=== PATIENT | female | born 1950 | race Caucasian/White ===

== ENCOUNTER 2017-11-08 09:57 | Emergency (ER) | payer OTHER ==
[~2017-11-08] VITALS: Ht 157.5 cm; Wt 44.9 kg
[~2017-11-08 09:57] MED LIST: HYDRCRY2; PRO20T
[2017-11-08 10:04] VITALS: BP 157/91
[2017-11-08] MEDS ORDERED: PANTOPRAZOLE 40 MG/10 ML VIAL IV ONE ×2 (10:15→12:00)
[2017-11-08 10:39] LABS: Basophils # (auto) 0.1 uL; Basophils % (auto) 1.4 % (0.0-2.0); Eosinophils # (auto) 0.3 uL; Eosinophils % (auto) 3.7 % (0.0-7.0); Hematocrit 42.1 % (36.0-46.0); Hemoglobin 13.5 g/dL (12.2-16.2); Lymphocytes # (auto) 2.8 uL; Lymphocytes % (auto) 33.4 % (10.0-50.0); Mean Corpuscular Hemoglobin 28.2 pg (28.0-32.0); Monocytes # (auto) 0.6 uL; Monocytes % (auto) 7.1 % (0.0-12.0); Neutrophils # (auto) 4.6 uL; Neutrophils % (auto) 54.4 % (37.0-80.0); Nucleated Red Blood Cells % 0.1 %; Platelet Count (auto) 263 10^3/uL (140-450); Red Blood Cells 4.78 10^6/uL (4.0-5.20); White Blood Cell 8.4 10^3/uL (4.4-10.8)
[2017-11-08 10:41] LABS: Urine Bacteria FEW /hpf (None Seen); Urine Blood Negative /uL (Negative); Urine Hyaline Cast FEW /lpf (0 - 2); Urine Mucus FEW (None Seen); Urine WBC 2 /hpf (0 - 5)
[2017-11-08 11:10] LABS: Albumin 3.6 g/dL (3.4-5.0); BUN/Creatinine Ratio 14.7; Bilirubin, Total 0.7 mg/dL (0.2-1.0); Potassium 3.5 mmol/L (3.5-5.1); Total Protein 7.9 g/dL (6.4-8.2)
[2017-11-08] MEDS ORDERED: SODIUM CHLORIDE 0.9% 1,000 ML IV SCH (11:51)
[2017-11-08] MEDS ORDERED: NITROGLYCERIN 0.4 MG SL TAB SL PRN (12:00)
[2017-11-08] MEDS ORDERED: LORazepam 0.5 MG TAB PO PRN (12:00)
[2017-11-08] MEDS ORDERED: ACETAMINOPHEN 500 MG TAB PO PRN (12:00)
[2017-11-08] MEDS ORDERED: PROMETHAZINE HCL 25 MG/ML 1ML IV PRN (12:00)
[2017-11-08] MEDS ORDERED: traMADol HCL 50 MG TAB PO PRN (12:00)
[2017-11-08] MEDS ORDERED: MORPHINE SULF INJ 2 MG/ML SYRINGE 1ML IV PRN (12:00)
[2017-11-08 12:24] LABS: Amylase 90 U/L (25-115); Lipase 137 U/L (73-393)
[2017-11-09] MEDS ORDERED: PANTOPRAZOLE 40 MG/10 ML VIAL IV SCH (10:00)
== END 2017-11-08 12:53 | disposition left against medical advice (07) ==
LOC: ER 09:57
DX: N20.0 Calculus of kidney (principal); K25.9 Gastric ulcer, unspecified as acute or chronic, without hemorrhage or perforation; J44.9 Chronic obstructive pulmonary disease, unspecified; I10 Essential (primary) hypertension; Z90.49 Acquired absence of other specified parts of digestive tract
CPT/HCPCS: 36415; 71046; 74176; 80053; 81001; 82150; 83690; 85025; 85045; 85652; 86677; 93005

== ENCOUNTER → 2017-12-11 | Outpatient (CLI) | payer OTHER ==
[2017-12-11 08:11] LABS: Basophils # (auto) 0.1 uL; Basophils % (auto) 1.5 % (0.0-2.0); Eosinophils # (auto) 0.3 uL; Hematocrit 39.7 % (36.0-46.0); Lymphocytes # (auto) 2.3 uL; Lymphocytes % (auto) 40.1 % (10.0-50.0); Mean Corpuscular Hemoglobin 28.4 pg (28.0-32.0); Mean Corpuscular Hgb Conc. 32.7 g/dL (32.0-36.0); Mean Corpuscular Volume 86.9 fL (80.0-100.0); Monocytes # (auto) 0.4 uL; Monocytes % (auto) 7.3 % (0.0-12.0); Neutrophils # (auto) 2.6 uL; Neutrophils % (auto) 45.1 % (37.0-80.0); Nucleated Red Blood Cells % 0.1 %; Platelet Count (auto) 232 10^3/uL (140-450); Red Blood Cells 4.57 10^6/uL (4.0-5.20); Red Cell Distribution Width 14.6 % (11.8-14.3); White Blood Cell 5.8 10^3/uL (4.4-10.8)
[2017-12-11 08:17] LABS: Urine Bacteria NONE SEEN /hpf (None Seen); Urine Blood Negative /uL (Negative); Urine Specific Gravity 1.015 (1.001-1.035); Urine WBC 1 /hpf (0 - 5)
[2017-12-11 09:05] LABS: Albumin 3.6 g/dL (3.4-5.0); BUN/Creatinine Ratio 20.6; Bilirubin, Total 0.5 mg/dL (0.2-1.0); Calcium 9.2 mg/dL (8.5-10.1); Potassium 3.7 mmol/L (3.5-5.1); Total Protein 7.6 g/dL (6.4-8.2)
[2017-12-11 10:34] LABS: Folate (Folic Acid) 15.76 ng/mL (5.38-24)
[2017-12-13 09:19] LABS: Hepatitis B Surface Antibody Negative
[2017-12-13 09:57] LABS: Hepatitis A Total Antibody Negative
[2017-12-13 10:42] LABS: Hepatitis B Core Total AB Positive; Hepatitis B Surface Antigen Negative (Negative); Hepatitis C Antibody Negative (Negative)
== END | disposition home or self-care (01) ==
LOC: LAB 07:23
PROVIDERS: ATTEND Nurse Practitioner
DX: E78.5 Hyperlipidemia, unspecified (principal); J44.9 Chronic obstructive pulmonary disease, unspecified; I10 Essential (primary) hypertension
CPT/HCPCS: 36415; 80053; 80061; 81001; 82306; 82607; 82746; 84443; 85025; 86704; 86706; 86708; 86803; 87340

== ENCOUNTER 2018-06-24 17:37 | Emergency (ER) | payer OTHER | END 2018-06-24 18:44 | disposition left against medical advice (07) | LOC: ER 17:37 | DX: R07.9 Chest pain, unspecified (principal); Z53.21 Procedure and treatment not carried out due to patient leaving prior to being seen by health care provider | CPT/HCPCS: 82962; 93005 ==

== ENCOUNTER 2018-09-27 16:29 | Emergency (ER) | payer BC, OTHER ==
[~2018-09-27] VITALS: Ht 165.1 cm; Wt 54.4 kg
[2018-09-27 18:01] LABS: Basophils # (auto) 0.2 uL; Eosinophils # (auto) 0.3 uL; Eosinophils % (auto) 5.7 % (0.0-7.0); Hematocrit 39.2 % (36.0-46.0); Hemoglobin 13.1 g/dL (12.2-16.2); Lymphocytes # (auto) 2.3 uL; Lymphocytes % (auto) 46.2 % (10.0-50.0); Mean Corpuscular Hemoglobin 30.5 pg (28.0-32.0); Mean Corpuscular Hgb Conc. 33.5 g/dL (32.0-36.0); Mean Corpuscular Volume 91.2 fL (80.0-100.0); Monocytes # (auto) 0.3 uL; Neutrophils # (auto) 1.8 uL; Neutrophils % (auto) 37.1 % (37.0-80.0); Nucleated Red Blood Cells % 0.1 %; Platelet Count (auto) 304 10^3/uL (140-450); Red Cell Distribution Width 18.6 % (11.8-14.3); White Blood Cell 4.9 10^3/uL (4.4-10.8)
[2018-09-27 18:13] LABS: Alanine Aminotransferase 32 U/L (13-56); Albumin 3.5 g/dL (3.4-5.0); Anion Gap 11 (5-15); Blood Urea Nitrogen 4 mg/dL (7-18); Calcium 8.4 mg/dL (8.5-10.1); Carbon Dioxide 24 mmol/L (21-32); Chloride 99 mmol/L (98-107); Glucose 116 mg/dL (74-106); Magnesium 2.2 mg/dL (1.6-2.6); Potassium 3.3 mmol/L (3.5-5.1); Sodium 134 mmol/L (136-145)
[2018-09-27 18:15] LABS: Urine Bacteria FEW /hpf (None Seen); Urine Blood Negative /uL (Negative); Urine Specific Gravity 1.003 (1.001-1.035); Urine WBC 112 /hpf (0 - 5)
[2018-09-27 18:19] LABS: Alkaline Phosphatase 120 U/L (45-117); Aspartate Aminotransferase 53 U/L (15-37); BUN/Creatinine Ratio 6.2; Bilirubin, Total 0.3 mg/dL (0.2-1.0); GFR African American 116 mL/min; GFR Non-African American 96 mL/min; Total Protein 7.6 g/dL (6.4-8.2)
[2018-09-27 19:10] VITALS: BP 139/67
[2018-09-27] MEDS ORDERED: SODIUM CHLORIDE 0.9% 1,000 ML IV ONE (19:28)
[2018-09-27] MEDS ORDERED: cefTRIAXone 1GM/50ML D5W 50 ML IV ONE (19:45)
== END 2018-09-27 20:41 | disposition home or self-care (01) ==
LOC: EDBD 16:29 → ER 16:29
DX: N39.0 Urinary tract infection, site not specified (principal); F10.920 Alcohol use, unspecified with intoxication, uncomplicated; J44.9 Chronic obstructive pulmonary disease, unspecified; I10 Essential (primary) hypertension; F17.210 Nicotine dependence, cigarettes, uncomplicated; Z90.49 Acquired absence of other specified parts of digestive tract; Y90.0 Blood alcohol level of less than 20 mg/100 ml; Z90.89 Acquired absence of other organs
CPT/HCPCS: 36415; 71045; 80053; 80320; 81001; 82962; 83735; 84484; 85025; 93005; 94761; 96365; 99284; J0696; J7030

== ENCOUNTER 2018-10-07 16:03 | Inpatient (IN) | payer BC ==
[~2018-10-07] VITALS: Ht 160 cm; Wt 57.0 kg
[~2018-10-07 16:03] MED LIST changes: -HYDRCRY2; +HYDRCRY2 PO
[2018-10-07] MEDS ORDERED: SODIUM CHLORIDE 0.9% 1,000 ML IV ONE ×2 (16:18)
[2018-10-07] MEDS ORDERED: THIAMINE 100mg/ml INJ (200mg/2ml VIAL) IV ONE (16:30)
[2018-10-07] MEDS ORDERED: ASPirin 81 mg TAB PO ONE (16:30)
[2018-10-07 16:44] LABS: Basophils # (auto) 0.1 uL; Basophils % (auto) 2.3 % (0.0-2.0); Eosinophils # (auto) 0.2 uL; Eosinophils % (auto) 4.9 % (0.0-7.0); Hematocrit 35.7 % (36.0-46.0); Hemoglobin 11.9 g/dL (12.2-16.2); Lymphocytes # (auto) 2.2 uL; Lymphocytes % (auto) 48.3 % (10.0-50.0); Mean Corpuscular Hemoglobin 31.1 pg (28.0-32.0); Mean Corpuscular Hgb Conc. 33.4 g/dL (32.0-36.0); Monocytes # (auto) 0.2 uL; Monocytes % (auto) 5.4 % (0.0-12.0); Neutrophils # (auto) 1.8 uL; Neutrophils % (auto) 39.1 % (37.0-80.0); Nucleated Red Blood Cells % 0.2 %; Platelet Count (auto) 205 10^3/uL (140-450); Red Blood Cells 3.84 10^6/uL (4.0-5.20); Red Cell Distribution Width 18.3 % (11.8-14.3); White Blood Cell 4.5 10^3/uL (4.4-10.8)
[2018-10-07 17:06] LABS: Albumin 3.2 g/dL (3.4-5.0); Anion Gap 12 (5-15); Blood Urea Nitrogen 4 mg/dL (7-18); Calcium 7.8 mg/dL (8.5-10.1); Carbon Dioxide 22 mmol/L (21-32); Chloride 96 mmol/L (98-107); Glucose 224 mg/dL (74-106); Sodium 130 mmol/L (136-145)
[2018-10-07 17:08] LABS: Alanine Aminotransferase 37 U/L (13-56); Alkaline Phosphatase 97 U/L (45-117); Aspartate Aminotransferase 66 U/L (15-37); Bilirubin, Total 0.3 mg/dL (0.2-1.0); GFR African American 135 mL/min; GFR Non-African American 112 mL/min; Total Protein 6.9 g/dL (6.4-8.2)
[2018-10-07 17:14] LABS: Potassium 2.7 mmol/L (3.5-5.1)
[2018-10-07] MEDS: POTASSIUM CHL 20MEQ/100ML 100 ML IV SCH ×2 (21:00→22:53)
[2018-10-07] MEDS ORDERED: HYDROcodone-ACET 5/325MG TAB PO PRN (21:15)
[2018-10-07] MEDS ORDERED: FOLIC ACID 1 MG TAB PO ONE (21:15)
[2018-10-07] MEDS ORDERED: ONDANSETRON HCL 4 MG/2 ML VIAL IV PRN (21:15)
[2018-10-07] MEDS ORDERED: chlordiazePOXIDE HCL 25 MG CAP PO PRN (21:15)
[2018-10-07] MEDS ORDERED: LORazepam 0.5 MG TAB PO PRN (21:15)
[2018-10-07] MEDS ORDERED: ACETAMINOPHEN 500 MG TAB PO PRN (21:15)
[2018-10-07] MEDS ORDERED: MULTIPLE VITAMIN TAB PO ONE (21:15)
[2018-10-07] MEDS: traZODone HCL 50 MG TAB PO SCH (21:41)
[2018-10-07] MEDS ORDERED: FAMOTIDINE (10MG/ML) 2ML VL IV ONE (21:45)
[2018-10-07] MEDS ORDERED: FAMOTIDINE (10MG/ML) 2ML VL IV SCH (22:00)
[2018-10-07 22:49] LABS: Urine Bacteria FEW /hpf (None Seen); Urine Blood Negative /uL (Negative); Urine Specific Gravity 1.002 (1.001-1.035); Urine WBC <1 /hpf (0 - 5)
[2018-10-07] MEDS: SODIUM CHLORIDE 0.9% 1,000 ML IV SCH (23:39)
[2018-10-08] VITALS (7 sets, daily range): BP systolic 105–159; BP diastolic 54–82
--- NOTE | 2018-10-08 00:45 | NUR ---
Telemetry admit from ER KEN MORAN admitted to Telemetry unit after SBAR received. Patient oriented to primary RN, unit, room, bed, and unit policies regarding patient care and visiting hours. Patient now on continuous telemetry monitoring, tele box # 14 and telemetry reading on arrival to unit is Sinus Rhythm with BBB. Patient placed on bedside oxygen, weighed by bedscale and encouraged to call if they need something. All questions and concerns addressed, patient verbalized understanding.
[2018-10-08] MEDS ORDERED: ALBUTEROL SULF 2.5 MG/0.5ML(0.5%) NEB SOLN NEB PRN (01:15)
[2018-10-08] MEDS ORDERED: IPRATROPIUM BROM 0.5 MG/2.5ML INH SOL NEB PRN (01:15)
[2018-10-08 06:53] LABS: BUN/Creatinine Ratio 8.9; Potassium 4.2 mmol/L (3.5-5.1)
[2018-10-08 07:21] LABS: Basophils # (auto) 0.2 uL; Basophils % (auto) 4.1 % (0.0-2.0); Eosinophils # (auto) 0.3 uL; Eosinophils % (auto) 6.5 % (0.0-7.0); Hematocrit 37.2 % (36.0-46.0); Hemoglobin 12.3 g/dL (12.2-16.2); Lymphocytes # (auto) 1.7 uL; Lymphocytes % (auto) 39.3 % (10.0-50.0); Mean Corpuscular Hgb Conc. 33.1 g/dL (32.0-36.0); Mean Corpuscular Volume 93.4 fL (80.0-100.0); Monocytes # (auto) 0 uL; Monocytes % (auto) 0.3 % (0.0-12.0); Neutrophils # (auto) 2.1 uL; Neutrophils % (auto) 49.8 % (37.0-80.0); Nucleated Red Blood Cells % 0.1 %; Platelet Count (auto) 177 10^3/uL (140-450); Red Blood Cells 3.98 10^6/uL (4.0-5.20); Red Cell Distribution Width 18.2 % (11.8-14.3); White Blood Cell 4.3 10^3/uL (4.4-10.8)
--- NOTE | 2018-10-08 07:30 | NUR ---
Opening Note Assumed care of patient she is A & O x 4, no s/s of distress at this time. Patient has no complaints at this time, other than she would like more food. POC discussed with patient. She is feeling stronger than she did last night. Bed is in low, locked position, call light within reach, educated patient to call for assistance to use the bedside commode as needed. Will continue to monitor Q1h and PRN.
--- NOTE | 2018-10-08 08:00 | NUR ---
Patient blood sugar low Patient lab values this morning demonstrated a low blood sugar value. 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 Will notify provider. Patient is asymptomatic at this time. Educated patient on s/s of hypoglycemia and to notify this nurse if she starts to experience any s/s. Will continue to monitor Q1h and PRN.
[2018-10-08] MEDS: FAMOTIDINE (10MG/ML) 2ML VL IV SCH (10:47)
[2018-10-08] MEDS: LISINOPRIL 20 MG TAB PO SCH (10:48)
[2018-10-08] MEDS: SODIUM CHLORIDE 0.9% 1,000 ML IV SCH ×3 (10:48→21:45)
--- NOTE | 2018-10-08 12:40 | NUR ---
Dr. Bryan at bedside
--- NOTE | 2018-10-08 12:45 | NUR ---
Spoke to Dr. Bryan Orders received, read back and verified. Will medicate patient per orders.
[2018-10-08] MEDS: FOLIC ACID 1 MG, MULTIPLE VITAMIN 10 ML, MAGNESIUM SULF SDV 50% 8 MEQ, THIAMINE INJ 100... INJ SCH ×5 (13:32)
[2018-10-08] MEDS: chlordiazePOXIDE HCL 25 MG CAP PO SCH ×2 (13:46→21:45)
--- NOTE | 2018-10-08 14:13 | NUR ---
Respiratory note: PT ASSESSED FOR PRN MED NEB TX. TX IS NOT INDICATED AT THIS TIME. PT DENIES ANY SOB. PT IS BREATHING COMFORTABLY ON RA WITH A POX OF 95%, RR 14, HR 82. B/S ARE CLEAR THROUGHOUT. PT IS AWARE TO PRESS THE CALL LIGHT AND TO ASK FOR A MED NEB TX IF SHE HAS ANY DIFFICULTY BREATHING.
--- NOTE | 2018-10-08 16:31 | NUR ---
assessment Patient is a 68 year old female who is alert and oriented. Prior to admission patient lived home alone and functions independently. Patient informed me she has a fww, cane and wheelchair for home use, but does not need to use them. Patient has an advanced directive and her POA is her son Narinder. Patient informed me she was admitted for weakness. Patient may benefit from home health for PT, safety, and med management. I informed patient she has a ss consult foe no pcp, lives alone, and needs additional help with ADL's. Patient informed me she only need help when she falls ill and becomes weak. Patient informed me she does live alone and it works well for her. Patient informed me she will return home on discharge. I have requested home health for patient. [facility] care coordinator will see patient for PCP. Patient verbalized understanding and agreed to discharge plan home. Addendum: 10/08/18 at 1637 by Padmini HENRY Amended: Links added.
[2018-10-08] MEDS: traZODone HCL 50 MG TAB PO SCH (21:46)
--- NOTE | 2018-10-08 22:11 | NUR ---
Respiratory note: PT SEEN AND ASSESSED FOR PRN MED NEB TX AT 2211. TX NOT INDICATED AT THIS TIME. PT DISPLAYING NO SIGNS OF DISTRESS. SHE WAS SLEEPING WHEN ENTERING THE ROOM. BREATH SOUNDS WERE DIMINISHED BILATERALLY. HR 67 RR 18 POX 96% ON ROOM AIR.
[2018-10-09] MEDS: SODIUM CHLORIDE 0.9% 1,000 ML IV SCH ×2 (01:53→11:51)
[2018-10-09 05:00] VITALS: BP 106/51
[2018-10-09] MEDS: chlordiazePOXIDE HCL 25 MG CAP PO SCH (06:00)
--- NOTE | 2018-10-09 08:00 | NUR ---
Opening Note Assumed care of patient, she is A& O x4, she walked to the nursing station to ask "I would like a cola." She was also wondering when she would get to go home. Walked patient back to room. She was steady on her feet. Patient made aware of the POC. Bed is in low, locked position, call light within reach. Will continue to monitor Q 1h and PRN. No other complaints at this time.
[2018-10-09 08:41] VITALS: BP 122/67
--- NOTE | 2018-10-09 10:10 | NUR ---
Respiratory note: ROUTINE PRN TX ASSESSMENT DONE. HR 63, RR 18, POX 99% ON RA, BREATH SOUNDS ARE CLEAR. NO SOB OR DISTRESS NOTED. PT WAS NOTIFY TO HAVE RT PAGE FOR [place] TX IF NEEDED.
--- NOTE | 2018-10-09 11:10 | NUR ---
Patient lethargic Upon entering room, patient is slumped in bed and can barely keep her eyes open, she is A & O x4, but says "I keep thinking I am at home, I get up to get my jacket or go to the kitchen and then I am here." Patient says "I get hypoglycemic," gave patient an orange juice to drink and checked her glucose 15 min later, patient glucose 103. Will continue to monitor patient Q1h and PRN. Patient is not diabetic.
--- NOTE | 2018-10-09 11:40 | NUR ---
Per consult for home health safety evaluation, physical therapy, medication management. Contacted [facility] Ph:( [phone]) Fax: ( [phone]) faxed medical records. Juan David Finney from [facility] Pt has been accepted and service to start within 48hrs upon d/c. Informed Talent Sourcing Specialist Chanelle for insurance authorization. Addendum: 10/09/18 at 1145 by DEMETRI ELY Amended: Links added.
--- NOTE | 2018-10-09 11:40 | NUR ---
Dr. Bryan at bedside Patient talked to doctor, is feeling more alert, but tired. Patient is A& O x4. Orders received from Dr. Bryan, read back, and verified. Will medicate per orders.
[2018-10-09] MEDS: FAMOTIDINE (10MG/ML) 2ML VL IV SCH (11:41)
[2018-10-09] MEDS: LISINOPRIL 20 MG TAB PO SCH (11:42)
[2018-10-09] MEDS: FOLIC ACID 1 MG, MULTIPLE VITAMIN 10 ML, MAGNESIUM SULF SDV 50% 8 MEQ, THIAMINE INJ 100... INJ SCH ×5 (12:00)
[2018-10-09] MEDS ORDERED: chlordiazePOXIDE HCL 25 MG CAP PO PRN (14:00)
[2018-10-09 14:24] VITALS: BP 122/67
--- NOTE | 2018-10-09 14:40 | NUR ---
Patient is alert and oriented Patient is ready to go home, she states "I have my dogs to take care of." She is aware of the social media senior associate that will be coming to her home. She spoke to social media senior associate today. Patient is ambulatory and states "I am feeling much better." Will be discharging patient home shortly.
--- NOTE | 2018-10-09 15:50 | NUR ---
Patient requested multiple times to go wait in the lobby. Patient is stable on her feet walking and has walked around the nursing station twice with no s/s of distress. Patient has been educated about follow up and discharge, given discharge paperwork, IV removed intact, pressure dressing applied, tele box removed. She has no meds in the pharmacy. She knows her address and how to get home. She will be waiting in the ER lobby to be picked up by yellow cab who should be arriving about 1600, patient was given a taxi voucher and wheeled down to ER lobby to wait by staff. Patient was in no distress at the time she was wheeled to the ER lobby, she had all of her belongings in a bag. Addendum: 10/09/18 at 1634 by JJ LEE RN RN ID bands removed as well.
--- NOTE | 2018-10-09 16:00 | NUR ---
Patient discharged. Addendum: 10/09/18 at 1701 by JJ LEE RN RN Amended: Links added.
--- NOTE | 2018-10-09 16:08 | NUR ---
Patient was picked up by yellow cab, phone call made to ER lu to confirm.
--- NOTE | 2018-10-10 08:22 | NUR ---
faxed ss order to [facility] [phone] send auth to [facility]
== END 2018-10-09 16:08 | disposition home health service (06) | DRG 641 ==
LOC: EDBD 16:03 → ER 16:11 → TELE 16:12 → TELE-WESTW 23:27
PROVIDERS: ADMIT Nurse Practitioner Family; ATTEND Family Medicine
DX: E16.2 Hypoglycemia, unspecified (principal); E44.1 Mild protein-calorie malnutrition; E87.1 Hypo-osmolality and hyponatremia; I24.9 Acute ischemic heart disease, unspecified; Z68.22 Body mass index [BMI] 22.0-22.9, adult; E86.0 Dehydration; E87.6 Hypokalemia; F10.229 Alcohol dependence with intoxication, unspecified; F17.210 Nicotine dependence, cigarettes, uncomplicated; I10 Essential (primary) hypertension; J44.9 Chronic obstructive pulmonary disease, unspecified; K27.9 Peptic ulcer, site unspecified, unspecified as acute or chronic, without hemorrhage or perforation; Z87.11 Personal history of peptic ulcer disease; Z90.710 Acquired absence of both cervix and uterus; Z98.84 Bariatric surgery status; Y90.9 Presence of alcohol in blood, level not specified
CPT/HCPCS: 36415; 80048; 80053; 80320; 81001; 82962; 83036; 83735; 84484; 85025; 87081; 93005; 94761; 96374; G0378; J3480; J3490

== ENCOUNTER 2018-11-19 16:05 | Inpatient (IN) | payer BC ==
[~2018-11-19] VITALS: Ht 160 cm; Wt 53.1 kg
[2018-11-19] MEDS ORDERED: SODIUM CHLORIDE 0.9% 1,000 ML IV ONE ×2 (16:34)
[2018-11-19] MEDS ORDERED: THIAMINE 100mg/ml INJ (200mg/2ml VIAL) IV ONE (16:45)
[2018-11-19 17:17] LABS: Basophils # (auto) 0.2 uL; Basophils % (auto) 5.8 % (0.0-2.0); Eosinophils # (auto) 0.2 uL; Eosinophils % (auto) 5.2 % (0.0-7.0); Hematocrit 37.3 % (36.0-46.0); Hemoglobin 12.6 g/dL (12.2-16.2); Lymphocytes # (auto) 1.5 uL; Lymphocytes % (auto) 47.9 % (10.0-50.0); Mean Corpuscular Hemoglobin 31.6 pg (28.0-32.0); Mean Corpuscular Hgb Conc. 33.9 g/dL (32.0-36.0); Mean Corpuscular Volume 93.2 fL (80.0-100.0); Monocytes # (auto) 0.2 uL; Monocytes % (auto) 6.9 % (0.0-12.0); Neutrophils # (auto) 1.1 uL; Neutrophils % (auto) 34.2 % (37.0-80.0); Nucleated Red Blood Cells % 0.1 %; Platelet Count (auto) 149 10^3/uL (140-450); Red Cell Distribution Width 16.6 % (11.8-14.3); White Blood Cell 3.2 10^3/uL (4.4-10.8)
[2018-11-19 17:34] LABS: Albumin 3.2 g/dL (3.4-5.0); Anion Gap 19 (5-15); Blood Urea Nitrogen 5 mg/dL (7-18); Carbon Dioxide 21 mmol/L (21-32); Chloride 93 mmol/L (98-107); Glucose 147 mg/dL (74-106); Magnesium 1.8 mg/dL (1.6-2.6); Sodium 133 mmol/L (136-145)
[2018-11-19 17:39] LABS: Alanine Aminotransferase 37 U/L (13-56); Alkaline Phosphatase 97 U/L (45-117); Aspartate Aminotransferase 85 U/L (15-37); BUN/Creatinine Ratio 8.5; Bilirubin, Total 0.4 mg/dL (0.2-1.0); GFR African American 130 mL/min; GFR Non-African American 107 mL/min; Total Protein 6.9 g/dL (6.4-8.2)
[2018-11-19] MEDS ORDERED: MORPHINE SULF INJ 2 MG/ML SYRINGE 1ML IV PRN ×2 (18:30)
[2018-11-19] MEDS ORDERED: ONDANSETRON HCL 4 MG/2 ML VIAL IV PRN (18:30)
[2018-11-19] MEDS ORDERED: NITROGLYCERIN 0.4 MG SL TAB SL PRN (18:30)
[2018-11-19 21:23] VITALS: BP 143/88
[2018-11-19] MEDS ORDERED: ATORVASTATIN 20 MG TAB PO SCH (22:00)
[2018-11-19] MEDS: HYDROcodone-ACET 5/325MG TAB PO PRN (22:15)
[2018-11-19] MEDS: METOPROLOL TARTRATE 25 MG TAB PO SCH (22:15)
[2018-11-20] VITALS (8 sets, daily range): BP systolic 119–143; BP diastolic 61–88
[2018-11-20] MEDS ORDERED: LISI-646 PO (02:15)
[2018-11-20] MEDS ORDERED: HYDR-531 PO (02:15)
[2018-11-20 07:57] LABS: Basophils # (auto) 0.1 uL; Basophils % (auto) 2.6 % (0.0-2.0); Eosinophils # (auto) 0.2 uL; Eosinophils % (auto) 5.2 % (0.0-7.0); Hematocrit 38.3 % (36.0-46.0); Hemoglobin 12.4 g/dL (12.2-16.2); Lymphocytes # (auto) 0.9 uL; Lymphocytes % (auto) 27.2 % (10.0-50.0); Mean Corpuscular Hemoglobin 31.7 pg (28.0-32.0); Mean Corpuscular Hgb Conc. 32.3 g/dL (32.0-36.0); Mean Corpuscular Volume 98.2 fL (80.0-100.0); Monocytes # (auto) 0.3 uL; Nucleated Red Blood Cells % 0.2 %; Platelet Count (auto) 130 10^3/uL (140-450); Red Cell Distribution Width 17.2 % (11.8-14.3); White Blood Cell 3.5 10^3/uL (4.4-10.8)
[2018-11-20 08:10] LABS: INR 0.98 (0.9-1.15); Partial Thromboplastin Time 27.5 sec (23.64-32.05)
[2018-11-20 08:12] LABS: BUN/Creatinine Ratio 7.5; Calcium 8.1 mg/dL (8.5-10.1); Potassium 3.9 mmol/L (3.5-5.1)
[2018-11-20] MEDS: METOPROLOL TARTRATE 25 MG TAB PO SCH (09:04)
[2018-11-20] MEDS: HYDROcodone-ACET 5/325MG TAB PO PRN (09:09)
[2018-11-20] MEDS ORDERED: LISINOPRIL 10 MG TAB PO SCH (10:00)
[2018-11-20] MEDS ORDERED: FAMOTIDINE 20 MG TAB PO SCH (10:00)
[2018-11-20] MEDS ORDERED: ASPirin-EC 81 mg tab PO SCH (10:00)
[2018-11-20] MEDS ORDERED: FOLIC ACID 1 MG, MULTIPLE VITAMIN 10 ML, MAGNESIUM SULF SDV 50% 8 MEQ, THIAMINE INJ 100... INJ SCH ×5 (12:00)
== END 2018-11-20 19:00 | disposition home health service (06) | DRG 641 ==
LOC: EDBD 16:05 → ER 16:05 → TELE 16:06 → TELE-EAST 20:59
PROVIDERS: ADMIT Nurse Practitioner Acute Care; ATTEND Hospitalist
DX: E86.0 Dehydration (principal); F10.129 Alcohol abuse with intoxication, unspecified; E16.2 Hypoglycemia, unspecified; E87.6 Hypokalemia; F17.210 Nicotine dependence, cigarettes, uncomplicated; I10 Essential (primary) hypertension; J44.9 Chronic obstructive pulmonary disease, unspecified; K21.9 Gastro-esophageal reflux disease without esophagitis; Z82.49 Family history of ischemic heart disease and other diseases of the circulatory system; Z83.3 Family history of diabetes mellitus; Z87.11 Personal history of peptic ulcer disease; Z90.710 Acquired absence of both cervix and uterus; Z98.84 Bariatric surgery status; Z90.49 Acquired absence of other specified parts of digestive tract; Z79.899 Other long term (current) drug therapy
CPT/HCPCS: 36415; 71045; 80048; 80053; 82962; 83735; 84484; 85025; 85610; 85730; 86141; 87081; 93005; 93306; G0378; J2405

== ENCOUNTER 2018-12-16 14:31 | Emergency (ER) | payer BC ==
[~2018-12-16] VITALS: Ht 167.6 cm; Wt 45.4 kg
[~2018-12-16 14:31] MED LIST changes: +HYDR-531 PO; -HYDRCRY2 PO; +LISI-646 PO; -PRO20T
[2018-12-16] MEDS ORDERED: SODIUM CHLORIDE 0.9% 1,000 ML IVB ONE (15:03)
[2018-12-16 15:54] LABS: Basophils # (auto) 0.2 uL; Basophils % (auto) 5.1 % (0.0-2.0); Eosinophils # (auto) 0.2 uL; Eosinophils % (auto) 6.1 % (0.0-7.0); Hematocrit 39.4 % (36.0-46.0); Hemoglobin 13.2 g/dL (12.2-16.2); Lymphocytes # (auto) 1.4 uL; Lymphocytes % (auto) 41.7 % (10.0-50.0); Mean Corpuscular Hemoglobin 32.4 pg (28.0-32.0); Mean Corpuscular Hgb Conc. 33.4 g/dL (32.0-36.0); Mean Corpuscular Volume 96.8 fL (80.0-100.0); Monocytes # (auto) 0.2 uL; Monocytes % (auto) 7.5 % (0.0-12.0); Neutrophils # (auto) 1.3 uL; Neutrophils % (auto) 39.6 % (37.0-80.0); Nucleated Red Blood Cells % 0.2 %; Platelet Count (auto) 153 10^3/uL (140-450); Red Blood Cells 4.07 10^6/uL (4.0-5.20); Red Cell Distribution Width 17.7 % (11.8-14.3); White Blood Cell 3.3 10^3/uL (4.4-10.8)
[2018-12-16 16:00] LABS: Calcium 8.6 mg/dL (8.5-10.1); Potassium 3.7 mmol/L (3.5-5.1)
[2018-12-16 16:04] LABS: Bilirubin, Total 0.6 mg/dL (0.2-1.0); Total Protein 7.9 g/dL (6.4-8.2)
[2018-12-16 22:26] VITALS: BP 155/79
== END 2018-12-17 22:55 | disposition home or self-care (01) ==
LOC: ER 14:31 → EDBD 14:31 → ER 12-17 22:55
DX: F10.129 Alcohol abuse with intoxication, unspecified (principal); F17.210 Nicotine dependence, cigarettes, uncomplicated; F12.10 Cannabis abuse, uncomplicated; J44.9 Chronic obstructive pulmonary disease, unspecified; I10 Essential (primary) hypertension; Z87.11 Personal history of peptic ulcer disease; Z90.49 Acquired absence of other specified parts of digestive tract; Z90.710 Acquired absence of both cervix and uterus; Y90.8 Blood alcohol level of 240 mg/100 ml or more
CPT/HCPCS: 36415; 80053; 80320; 85025; 94761; 99283; J7030

== ENCOUNTER 2018-12-31 18:12 | Inpatient (IN) | payer BC ==
[~2018-12-31] VITALS: Ht 160 cm; Wt 54.3 kg
[2018-12-31] MEDS ORDERED: ACCU-CHEK COMFORT CURVE STRIP VI ONE (18:45)
[2018-12-31 19:17] LABS: Basophils # (auto) 0.1 uL; Lymphocytes # (auto) 0.7 uL; Monocytes # (auto) 0.2 uL; Neutrophils # (auto) 0.8 uL
[2018-12-31 19:19] LABS: Basophils % (auto) 3.3 % (0.0-2.0); Eosinophils # (auto) 0 uL; Eosinophils % (auto) 1.7 % (0.0-7.0); Hematocrit 33.3 % (36.0-46.0); Hemoglobin 11.3 g/dL (12.2-16.2); Lymphocytes % (auto) 38.9 % (10.0-50.0); Mean Corpuscular Hemoglobin 32.8 pg (28.0-32.0); Mean Corpuscular Hgb Conc. 33.8 g/dL (32.0-36.0); Mean Corpuscular Volume 97.2 fL (80.0-100.0); Monocytes % (auto) 12.7 % (0.0-12.0); Neutrophils % (auto) 43.4 % (37.0-80.0); Nucleated Red Blood Cells % 0.4 %; Platelet Count (auto) 72 10^3/uL (140-450); Red Blood Cells 3.43 10^6/uL (4.0-5.20); Red Cell Distribution Width 17.6 % (11.8-14.3)
[2018-12-31 19:33] LABS: Albumin 3.2 g/dL (3.4-5.0); Anion Gap 21 (5-15); Blood Urea Nitrogen 5 mg/dL (7-18); Calcium 7.3 mg/dL (8.5-10.1); Carbon Dioxide 18 mmol/L (21-32); Chloride 91 mmol/L (98-107); Glucose 199 mg/dL (74-106); Magnesium 1.7 mg/dL (1.6-2.6); Sodium 130 mmol/L (136-145)
[2018-12-31 19:34] LABS: Acetaminophen < 2.0 ug/mL (10-30); Salicylate 3.7 mg/dL (2.8-20.0)
[2018-12-31 19:35] LABS: Alanine Aminotransferase 52 U/L (13-56); Aspartate Aminotransferase 135 U/L (15-37); BUN/Creatinine Ratio 8.5; GFR African American 130 mL/min; GFR Non-African American 107 mL/min
[2018-12-31 19:37] LABS: Alkaline Phosphatase 92 U/L (45-117); Bilirubin, Total 0.6 mg/dL (0.2-1.0); Total Protein 6.2 g/dL (6.4-8.2)
[2018-12-31] MEDS ORDERED: THIAMINE INJ 100 MG in SODIUM CHLORIDE 0.9% 1,000 ML IV ONE (20:00)
[2018-12-31 20:02] LABS: Potassium 2.4 mmol/L (3.5-5.1)
[2018-12-31] MEDS ORDERED: POTASSIUM CHL 20MEQ/100ML 100 ML IV ONE (20:15)
[2018-12-31 20:18] LABS: White Blood Cell 1.8 10^3/uL (4.4-10.8)
[2018-12-31] MEDS ORDERED: THIAMINE 100mg/ml INJ (200mg/2ml VIAL) ONE (20:29)
[2018-12-31 21:17] LABS: Amylase 35 U/L (25-115); Lipase 42 U/L (73-393)
[2018-12-31 21:26] LABS: Urine Bacteria NONE SEEN /hpf (None Seen); Urine Blood Negative /uL (Negative); Urine Specific Gravity 1.005 (1.001-1.035); Urine WBC <1 /hpf (0 - 5)
[2018-12-31 21:29] LABS: Amphetamine Screen, Urine NEGATIVE (NEGATIVE); Barbiturate Scree,Urine NEGATIVE (NEGATIVE); Benzodiazephine Screen, Urine NEGATIVE (NEGATIVE); Cannabinoid Screen, Urine NEGATIVE (NEGATIVE); Cocaine Screen, Urine NEGATIVE (NEGATIVE); Opiate Scree,Urine NEGATIVE (NEGATIVE); Phencyclidine Screen, Urine NEGATIVE (NEGATIVE)
[2018-12-31] MEDS ORDERED: IOHEXOL 300 MG/ML 100ML BOTTLE IJ ONE (21:30)
[2018-12-31 21:36] LABS: Lactic Acid w/Reflex 2.5 mmol/L (0.4-2.0)
[2018-12-31] MEDS ORDERED: VANCOMYCIN PER PHARMACY 1,000 MG IV SCH (22:45)
[2018-12-31] MEDS ORDERED: DEXTROSE (50%) 50ML SYRG IV ONE (22:45)
[2018-12-31] MEDS ORDERED: SODIUM CHLORIDE 0.9% 1,550 ML IV ONE (22:45)
[2018-12-31] MEDS ORDERED: ONDANSETRON HCL 4 MG/2 ML VIAL ONE (22:48)
[2018-12-31] MEDS ORDERED: ONDANSETRON HCL 4 MG/2 ML VIAL IV ONE (23:00)
[2018-12-31] MEDS ORDERED: VANCOMYCIN 1GM/250ML 250 ML IV ONE (23:15)
[2019-01-01] MEDS: PIPERACILLIN-TAZOB 3.375GM 100 ML IV SCH ×2 (00:16→12:24)
[2019-01-01] MEDS ORDERED: chlordiazePOXIDE HCL 25 MG CAP PO PRN (01:00)
[2019-01-01] MEDS ORDERED: ACETAMINOPHEN 325 MG TAB PO PRN (01:00)
[2019-01-01] MEDS ORDERED: TEMAZEPAM 15 MG CAP PO PRN (01:00)
[2019-01-01] MEDS ORDERED: MORPHINE SULF INJ 2 MG/ML SYRINGE 1ML IV PRN (01:00)
[2019-01-01] MEDS ORDERED: DEXTROSE (50%) 50ML SYRG IV PRN (01:00)
[2019-01-01] MEDS ORDERED: NITROGLYCERIN 0.4 MG SL TAB SL PRN (01:00)
[2019-01-01] MEDS ORDERED: SODIUM CHLORIDE 0.9% 1,000 ML IV ONE (01:00)
[2019-01-01 01:27] LABS: Basophils # (auto) 0.1 uL; Basophils % (auto) 3.1 % (0.0-2.0); Eosinophils # (auto) 0.1 uL; Eosinophils % (auto) 3.1 % (0.0-7.0); Hematocrit 29.7 % (36.0-46.0); Hemoglobin 10.2 g/dL (12.2-16.2); Lymphocytes # (auto) 0.8 uL; Lymphocytes % (auto) 38.4 % (10.0-50.0); Mean Corpuscular Hemoglobin 33.2 pg (28.0-32.0); Mean Corpuscular Hgb Conc. 34.2 g/dL (32.0-36.0); Monocytes # (auto) 0.3 uL; Monocytes % (auto) 13.2 % (0.0-12.0); Neutrophils # (auto) 0.9 uL; Neutrophils % (auto) 42.2 % (37.0-80.0); Nucleated Red Blood Cells % 0.1 %; Platelet Count (auto) 66 10^3/uL (140-450); Red Blood Cells 3.06 10^6/uL (4.0-5.20); Red Cell Distribution Width 17.8 % (11.8-14.3); White Blood Cell 2.1 10^3/uL (4.4-10.8)
[2019-01-01 01:47] LABS: BUN/Creatinine Ratio 8.5; Calcium 7.1 mg/dL (8.5-10.1)
[2019-01-01 01:50] LABS: Potassium 2.8 mmol/L (3.5-5.1)
[2019-01-01] MEDS ORDERED: LEVOFLOXACIN 500MG 100 ML IV SCH (02:00)
[2019-01-01] MEDS ORDERED: POTASSIUM CHL 20 Meq TABLET PO ONE (02:00)
[2019-01-01] MEDS ORDERED: metroNIDAZOLE 500MG/100ML 100 ML IV SCH (02:00)
--- NOTE | 2019-01-01 03:13 | NUR ---
Telemetry admit from ER KEN MORAN admitted to Telemetry unit after SBAR received. Patient oriented to Mia fitzpatrick RN, unit, room, bed, and unit policies regarding patient care and visiting hours. Patient now on continuous telemetry monitoring, tele box # 66 and telemetry reading on arrival to unit is SR87. Patient placed on bedside oxygen, weighed by bed scale and encouraged to call if they need something. All questions and concerns addressed, patient verbalized understanding. Note: Came per stretcher awake alert oriented x 3,not in respiratory distress, placed in the bed comfortably,vital signs checked.
[2019-01-01] MEDS ORDERED: POTASSIUM CHL 20MEQ/100ML 100 ML IV ONE (03:15)
[2019-01-01 03:20] VITALS: BP 146/85
[2019-01-01] MEDS ORDERED: TRAZ150T79 PO (04:32)
[2019-01-01 05:48] VITALS: BP 141/86
[2019-01-01] MEDS ORDERED: InsuLIN REG 1unit/0.01ml Soln (100units/ml) SC SCH (06:00)
[2019-01-01] MEDS: ONDANSETRON HCL 4 MG/2 ML VIAL IV PRN ×2 (06:16→22:32)
[2019-01-01] MEDS: ACCU-CHEK COMFORT CURVE STRIP VI SCH ×3 (06:16→17:30)
[2019-01-01] MEDS: metroNIDAZOLE 500MG/100ML 100 ML IV SCH ×3 (07:03→20:40)
--- NOTE | 2019-01-01 07:30 | NUR ---
OPENING NOTE ASSUMED CARE OF PT. ALERT AND ORIENTED. NO S/S OF SOB/DISTRESS NOTED. DENIES ANY PAIN. FALL PRECAUTIONS IN PLACE. BED SET TO LOWEST POSITION/LOCKED. BEDSIDE RAILS UP X2. CALL LIGHT WITHIN REACH. INSTRUCTED PT TO CALL FOR ASSISTANCE. UPDATED ON POC. PT VERBALIZED UNDERSTANDING. WILL CONTINUE TO MONITOR Q1HR AND PRN.
--- NOTE | 2019-01-01 07:55 | NUR ---
Report given to Larry Couch, patient is resting, no distress.
[2019-01-01 08:58] VITALS: BP 144/80
[2019-01-01] MEDS: FAMOTIDINE 20 MG TAB PO SCH ×2 (09:38→21:39)
--- NOTE | 2019-01-01 11:45 | NUR ---
BLOOD GLUCOSE PATIENT BG 96. WILL CONTINUE TO MONITOR.
[2019-01-01] MEDS: SODIUM CHLORIDE 0.9% 1,000 ML IV SCH (12:24)
[2019-01-01] MEDS: FOLIC ACID 1 MG, MULTIPLE VITAMIN 10 ML, MAGNESIUM SULF SDV 50% 8 MEQ, THIAMINE INJ 100... INJ SCH ×5 (12:24)
[2019-01-01 13:00] VITALS: BP 140/83
[2019-01-01] MEDS: GABAPENTIN 300 MG CAP PO SCH ×2 (13:57→21:39)
--- NOTE | 2019-01-01 15:10 | NUR ---
assessment Patient is a 68 year old female who is alert and oriented. Patients cognitive abilities are intact. Prior to admission patient lived home alone and functioned independently. Patient informed me she is able to care for her own ADLs. Per patient she will return home to her prior living arrangements post discharge and will have transport home. Patient was admitted for alcohol intoxication. Patient informed me she has drank a pint of vodka daily for years. Patient informed me she would like to go to AA meeting. I will send Yue CAMILO to see patient with resources for inpatient and outpatient ETOH rehabs and also a list of local AA meetings. Patient informed me she wants to quit drinking. I informed patient she should be followed by her PCP and also to think about seeing a therapist regarding the reason she started drinking heavily. Patient agreed. Patient would also benefit from home health safety eval. I informed patient she has a right to speak to a licensed master social worker regarding all care. I informed patient she has a right to participate in any and all discharge planning. Patient does not have a POA and advanced directive. I have offered patient information on POA and advanced directives. I informed the patient the advantages and benefits of having an Advanced Directive. Patient verbalized understanding and agreed to discharge plan. Addendum: 01/01/19 at 1520 by Padmini HENRY Amended: Links added. 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 Alcohol abuse. Yue RIZZO1 has provided patient with inpatient and outpatient rehab facilities such as [facility] and also a list of AA meeting.
[2019-01-01 16:58] VITALS: BP 133/71
--- NOTE | 2019-01-01 17:30 | NUR ---
BLOOD GLUCOSE PATIENT BG 103. WILL CONTINUE TO MONITOR.
[2019-01-01 18:47] LABS: Albumin 3.1 g/dL (3.4-5.0); BUN/Creatinine Ratio 1.7; Calcium 7.4 mg/dL (8.5-10.1); Potassium 3.3 mmol/L (3.5-5.1)
[2019-01-01 18:49] LABS: Bilirubin, Total 1.2 mg/dL (0.2-1.0); Total Protein 5.9 g/dL (6.4-8.2)
[2019-01-01 22:00] VITALS: BP 130/69
[2019-01-01] MEDS ORDERED: VANCOMYCIN 1GM/250ML 250 ML IV SCH (23:00)
[2019-01-02] MEDS: ACCU-CHEK COMFORT CURVE STRIP VI SCH ×3 (00:40→11:23)
[2019-01-02] MEDS: SODIUM CHLORIDE 0.9% 1,000 ML IV SCH ×2 (00:40→12:18)
[2019-01-02] MEDS ORDERED: LEVOFLOXACIN 500MG 100 ML IV SCH (03:00)
--- NOTE | 2019-01-02 04:20 | NUR ---
Assumed care received report and assumed care, patient resting in bed with even and unlabored respirations, no s/s of distress. Will continue care.
[2019-01-02] MEDS: GABAPENTIN 300 MG CAP PO SCH ×2 (05:13→13:25)
[2019-01-02] MEDS: metroNIDAZOLE 500MG/100ML 100 ML IV SCH ×2 (05:13→13:23)
[2019-01-02 05:29] LABS: Basophils # (auto) 0 uL; Eosinophils # (auto) 0.2 uL; Eosinophils % (auto) 7.4 % (0.0-7.0); Hematocrit 34.2 % (36.0-46.0); Hemoglobin 11.4 g/dL (12.2-16.2); Lymphocytes # (auto) 0.7 uL; Lymphocytes % (auto) 34.8 % (10.0-50.0); Mean Corpuscular Hemoglobin 33.1 pg (28.0-32.0); Mean Corpuscular Hgb Conc. 33.2 g/dL (32.0-36.0); Mean Corpuscular Volume 99.5 fL (80.0-100.0); Monocytes # (auto) 0.2 uL; Monocytes % (auto) 7.5 % (0.0-12.0); Neutrophils % (auto) 48.3 % (37.0-80.0); Nucleated Red Blood Cells % 0.4 %; Platelet Count (auto) 68 10^3/uL (140-450); Red Blood Cells 3.44 10^6/uL (4.0-5.20); Red Cell Distribution Width 17.7 % (11.8-14.3); White Blood Cell 2.1 10^3/uL (4.4-10.8)
[2019-01-02 05:35] VITALS: BP 147/75
[2019-01-02 05:45] LABS: Albumin 2.9 g/dL (3.4-5.0); Calcium 7.4 mg/dL (8.5-10.1); Potassium 3.1 mmol/L (3.5-5.1)
[2019-01-02 05:48] LABS: BUN/Creatinine Ratio 3.8; Bilirubin, Total 0.8 mg/dL (0.2-1.0); Total Protein 5.9 g/dL (6.4-8.2)
--- NOTE | 2019-01-02 06:58 | NUR ---
Closing Note patient resting in bed with even and unlabored respirations, no s/s of distress. Bed low locked position with side rails up x 2 and call light within reach. Endorsed care to day shift RN
--- NOTE | 2019-01-02 07:57 | NUR ---
Opening Note Assumed pt care from [facility] nurse. Pt is a/ox4 with no s/s of distress or SOB. PT is currently sitting upright in bed with no complaints. Pt states that she is "anxious" to walk today so that she can go home. Discussed POC with pt; pt verbalized understanding. Safety measures maintained with call light within reach, bed in lowest position and side rails up. Will continue to monitor for changes q1hr and prn.
[2019-01-02 09:00] VITALS: BP 113/68
--- NOTE | 2019-01-02 09:14 | NUR ---
Dr Monge at Bedside Discussed with pt the possibility of D/C today per the pt ability to ambulate without difficulty. Will take out zuniga catheter.
[2019-01-02] MEDS ORDERED: FAMOTIDINE 20 MG TAB PO SCH (10:00)
--- NOTE | 2019-01-02 10:00 | NUR ---
Rios Catheter Removed Rios catheter removed without any difficulty noted. 350mL of urine drained from bag. Pt instructed on need to void before discharge; pt verbalized understanding.
[2019-01-02 11:43] VITALS: BP 113/68
[2019-01-02] MEDS: FOLIC ACID 1 MG, MULTIPLE VITAMIN 10 ML, MAGNESIUM SULF SDV 50% 8 MEQ, THIAMINE INJ 100... INJ SCH ×5 (12:10)
[2019-01-02 13:00] VITALS: BP 135/77
--- NOTE | 2019-01-02 14:02 | NUR ---
Pt Hesitant about D/C Pt expressed some hesitation about d/c today and not being able to walk effectively at home. Pt states that she would feel more comfortable about waiting until tomorrow for d/c. Paged and contacted Saleem regarding pt's concern; he is aware. I have encouraged the pt to frequent ambulation. She agreed and stated that she would feel "much better" having ambulated more before d/c home. Will provide frequent ambulations.
--- NOTE | 2019-01-02 14:51 | NUR ---
Pt Ambulation Pt able to ambulate using walker without difficulty for 5 minutes. Pt ambulated out of room and to elevator without difficulty. Mild shortness of breath when returned to her room/ Pt's gait was quite steady. Pt stated "this walk was much better than the one before". Will provide more ambulation opportunities and continue to monitor.
--- NOTE | 2019-01-02 16:30 | NUR ---
Discharge planning per consult, patient has orders to dc with home health , and needed information for ETOH abuse. On encounter patient was presented with information for AA and counselling programs, patient advised she was going to stop drinking and smoking cigarettes. Referral sent to [facility] for home health, placed a follow up call, spoke with and was advised they will accept the case and start of care will be with 24-48 hours of discharge. Obtained auth -[id number]. Nurse Cathleen and patient were advised of dc plan. Addendum: 01/02/19 at 1634 by KEHINDE ORR Amended: Links added.
[2019-01-02 17:00] VITALS: BP 135/76
--- NOTE | 2019-01-02 17:27 | NUR ---
IVs D/C'ed IV to pt's L FA as well as R upper arm have been d/c'ed. Pt tolerated well. Both catheters were removed fully intact. Pressure applied to both sites for 3 minutes. Pressure tape applied to the upper arm IV site. Pt instructed to keep dressings of for 30 minutes. Pt verbalized understanding.
--- NOTE | 2019-01-02 17:29 | NUR ---
TeleBox Sent to ICU Telebox 66 sent to ICU for pt's d/c
--- NOTE | 2019-01-02 17:29 | NUR ---
Taxi Service Called for sanding supervisor Approximate time of crop picker is 30-45 minutes. Will inform pt.
--- NOTE | 2019-01-02 17:50 | NUR ---
Pt D/C'ed off Unit Pt left unit via wheelchair with all belongings. Pt received all of the needed education as well as prescriptions. All questions were answered and IV's as well as teleboxes were d/c'ed. Pt left via the taxi service.
[2019-01-02] MEDS ORDERED: LEVOFLOXACIN 250MG 50 ML IV SCH (22:00)
== END 2019-01-02 17:50 | disposition home health service (06) | DRG 897 ==
LOC: EDSEX 18:12 → EDBD 18:12 → ER 18:31 → TELE 18:32 → TELE-WESTW 01-01 03:23
PROVIDERS: ADMIT Nurse Practitioner; ATTEND Internal Medicine
DX: F10.221 Alcohol dependence with intoxication delirium (principal); D61.818 Other pancytopenia; F10.239 Alcohol dependence with withdrawal, unspecified; K29.20 Alcoholic gastritis without bleeding; E87.6 Hypokalemia; K52.9 Noninfective gastroenteritis and colitis, unspecified; E86.0 Dehydration; F12.90 Cannabis use, unspecified, uncomplicated; I10 Essential (primary) hypertension; F17.210 Nicotine dependence, cigarettes, uncomplicated; F51.04 Psychophysiologic insomnia; Y90.8 Blood alcohol level of 240 mg/100 ml or more; K76.9 Liver disease, unspecified; I48.91 Unspecified atrial fibrillation; J44.9 Chronic obstructive pulmonary disease, unspecified; Z87.11 Personal history of peptic ulcer disease; Z90.49 Acquired absence of other specified parts of digestive tract; Z90.710 Acquired absence of both cervix and uterus; Z91.14 Patient's other noncompliance with medication regimen; Z82.0 Family history of epilepsy and other diseases of the nervous system; Z83.3 Family history of diabetes mellitus
CPT/HCPCS: 36415; 36600; 70450; 71045; 74177; 80048; 80053; 80307; 80320; 80329; 81001; 82140; 82150; 82550; 82805; 82962; 83605; 83690; 83735; 84484; 85025; 85379; 85384; 87040; 87086; 96361; 96365; 96367; 96375; 97163; G0378; J1956; J2405; J2543; J3480; J3490

== ENCOUNTER 2019-02-20 06:20 | Emergency (ER) | payer BC ==
[~2019-02-20] VITALS: Ht 160 cm; Wt 54.4 kg
[~2019-02-20 06:20] MED LIST changes: +TRAZ150T79 PO
[2019-02-20] MEDS ORDERED: SODIUM CHLORIDE 0.9% 1,000 ML IV ONE ×2 (07:09)
[2019-02-20] MEDS ORDERED: THIAMINE 100mg/ml INJ (200mg/2ml VIAL) IV ONE (07:15)
[2019-02-20 07:49] LABS: Basophils # (auto) 0.3 uL; Eosinophils # (auto) 0.3 uL; Eosinophils % (auto) 3.7 % (0.0-7.0); Hematocrit 40.7 % (36.0-46.0); Hemoglobin 13.8 g/dL (12.2-16.2); Lymphocytes # (auto) 1.9 uL; Lymphocytes % (auto) 24.7 % (10.0-50.0); Mean Corpuscular Hemoglobin 31.7 pg (28.0-32.0); Monocytes # (auto) 0.6 uL; Monocytes % (auto) 8.2 % (0.0-12.0); Neutrophils # (auto) 4.5 uL; Neutrophils % (auto) 59.4 % (37.0-80.0); Nucleated Red Blood Cells % 0.1 %; Platelet Count (auto) 365 10^3/uL (140-450); Red Blood Cells 4.37 10^6/uL (4.0-5.20); Red Cell Distribution Width 13.7 % (11.8-14.3); White Blood Cell 7.5 10^3/uL (4.4-10.8)
[2019-02-20] MEDS ORDERED: MORPHINE SULF INJ 2 MG/ML SYRINGE 1ML IV ONE (08:00)
[2019-02-20 08:07] LABS: Albumin 2.8 g/dL (3.4-5.0); Anion Gap 6 (5-15); Blood Urea Nitrogen 4 mg/dL (7-18); Calcium 7.9 mg/dL (8.5-10.1); Carbon Dioxide 27 mmol/L (21-32); Chloride 106 mmol/L (98-107); Glucose 81 mg/dL (74-106); Sodium 139 mmol/L (136-145)
[2019-02-20 08:13] LABS: Alanine Aminotransferase 17 U/L (13-56); Alkaline Phosphatase 161 U/L (45-117); Aspartate Aminotransferase 21 U/L (15-37); BUN/Creatinine Ratio 7.1; Bilirubin, Total 0.4 mg/dL (0.2-1.0); GFR African American 138 mL/min; GFR Non-African American 114 mL/min; Total Protein 7.1 g/dL (6.4-8.2)
[2019-02-20 08:47] VITALS: BP 153/66
== END 2019-02-20 11:14 | disposition home or self-care (01) ==
LOC: ER 06:20 → EDBD 06:20 → ER 11:14
DX: S92.325A Nondisplaced fracture of second metatarsal bone, left foot, initial encounter for closed fracture (principal); S96.912A Strain of unspecified muscle and tendon at ankle and foot level, left foot, initial encounter; J44.9 Chronic obstructive pulmonary disease, unspecified; E11.9 Type 2 diabetes mellitus without complications; I10 Essential (primary) hypertension; M11.262 Other chondrocalcinosis, left knee; F17.210 Nicotine dependence, cigarettes, uncomplicated; Z87.11 Personal history of peptic ulcer disease; Z90.49 Acquired absence of other specified parts of digestive tract; Z90.710 Acquired absence of both cervix and uterus; W19.XXXA Unspecified fall, initial encounter; Y93.89 Activity, other specified; Y92.89 Other specified places as the place of occurrence of the external cause; Y99.8 Other external cause status
CPT/HCPCS: 29515; 36415; 73562; 73610; 73630; 80053; 80320; 84484; 85025; 96374; 96375; 99284; J2270; J3411; J7030

== ENCOUNTER 2019-03-20 16:51 | Emergency (ER) | payer BC ==
[~2019-03-20] VITALS: Ht 160 cm; Wt 53.1 kg
[2019-03-20] MEDS ORDERED: SODIUM CHLORIDE 0.9% 1,000 ML IV ONE (17:06)
[2019-03-20 18:08] LABS: Basophils # (auto) 0.1 uL; Basophils % (auto) 1.3 % (0.0-2.0); Eosinophils # (auto) 0.4 uL; Eosinophils % (auto) 4.8 % (0.0-7.0); Hematocrit 45.5 % (36.0-46.0); Hemoglobin 15.1 g/dL (12.2-16.2); Lymphocytes # (auto) 4.4 uL; Mean Corpuscular Hgb Conc. 33.3 g/dL (32.0-36.0); Mean Corpuscular Volume 93.2 fL (80.0-100.0); Monocytes # (auto) 0.4 uL; Monocytes % (auto) 4.7 % (0.0-12.0); Neutrophils # (auto) 3.1 uL; Neutrophils % (auto) 37.2 % (37.0-80.0); Nucleated Red Blood Cells % 0.1 %; Platelet Count (auto) 250 10^3/uL (140-450); Red Blood Cells 4.88 10^6/uL (4.0-5.20); Red Cell Distribution Width 14.4 % (11.8-14.3); White Blood Cell 8.4 10^3/uL (4.4-10.8)
[2019-03-20 18:22] LABS: Albumin 3.2 g/dL (3.4-5.0); Calcium 8.3 mg/dL (8.5-10.1); Potassium 4.2 mmol/L (3.5-5.1)
[2019-03-20 18:25] LABS: BUN/Creatinine Ratio 14.3; Bilirubin, Total 0.2 mg/dL (0.2-1.0); Total Protein 7.8 g/dL (6.4-8.2)
[2019-03-20 20:30] VITALS: BP 146/82
== END 2019-03-20 21:45 | disposition home or self-care (01) ==
LOC: EDBD 16:51 → EDUNIT# 16:51 → ER 16:51
DX: F10.10 Alcohol abuse, uncomplicated (principal); R55 Syncope and collapse; J44.9 Chronic obstructive pulmonary disease, unspecified; E11.9 Type 2 diabetes mellitus without complications; I10 Essential (primary) hypertension; F17.210 Nicotine dependence, cigarettes, uncomplicated; Z90.49 Acquired absence of other specified parts of digestive tract; Z90.710 Acquired absence of both cervix and uterus; Z87.11 Personal history of peptic ulcer disease
CPT/HCPCS: 36415; 70450; 80053; 80320; 85025; 93005